=== PATIENT | female | born 1990 | race Two or more races ===

== ENCOUNTER 2018-06-25 20:10 | Observation (INO) | payer OTHER ==
[2018-06-25 21:54] LABS: RUPTURE FETAL MEMBRANES NEGATIVE (NEGATIVE)
[2018-06-25 22:01] LABS: ADD UMIC YES; UR ASCORBIC ACID 40 mg/dL (NEGATIVE); UR BACTERIA FEW /HPF (NONE SEEN); UR BILIRUBIN (Dip) NEGATIVE (NEGATIVE); UR BLOOD (Dip) NEGATIVE (NEGATIVE); UR CLARITY CLEAR (CLEAR); UR COLOR YELLOW (YELLOW); UR GLUCOSE (Dip) NEGATIVE (NEGATIVE); UR KETONES (Dip) NEGATIVE (NEGATIVE); UR LEUKOCYTE ESTERASE (Dip) TRACE Leu/ul (NEGATIVE); UR MUCUS FEW /HPF (NONE SEEN); UR NITRITE (Dip) NEGATIVE (NEGATIVE); UR RBC 1 /HPF (0-5); UR SPECIFIC GRAVITY (Dip) 1.015 (1.003-1.030); UR SQUAMOUS EPITHELIAL CELL FEW /HPF (FEW); UR TOTAL PROTEIN (Dip) NEGATIVE (NEGATIVE); UR UROBILINOGEN (Dip) NEGATIVE (NEGATIVE); UR WBC 3 /HPF (0-5)
[2018-06-26] MEDS ORDERED: LIDOCAINE 1% (MPF) 30 ML INJ INJ (01:00)
[2018-06-26] MEDS ORDERED: AMPICILLIN 2 GM/NS (PMX) 100 ML IV (01:00)
[2018-06-26] MEDS ORDERED: MISOPROSTOL 200 MCG TAB PR (01:00)
[2018-06-26] MEDS ORDERED: METHYLERGONOVINE 0.2 MG INJ IM (01:00)
[2018-06-26] MEDS ORDERED: BUTORPHANOL 1 MG INJ IV (01:00)
[2018-06-26] MEDS ORDERED: BUTORPHANOL 2 MG INJ IV (01:00)
[2018-06-26] MEDS ORDERED: CARBOPROST 250 MCG INJ IM (01:00)
[2018-06-26] MEDS ORDERED: OXYTOCIN 30 UNITS/LR 500 ML IV ×3 (01:00)
[2018-06-26] MEDS ORDERED: IBUPROFEN 600 MG TAB PO (01:00)
[2018-06-26] MEDS: LACTATED RINGER'S 1,000 ML IV* ×2 (04:21→11:59)
[2018-06-26 04:49] LABS: ADD MAN DIFF? NO
[2018-06-26 04:53] LABS: BASOPHILS % 0.2 % (0.0-2.0); EOSINOPHILS % 0.3 % (0.0-7.0); HEMATOCRIT 30.8 % (37.0-47.0); HEMOGLOBIN 10.4 g/dl (12.0-16.0); LYMPHOCYTES # 2.6 10^3/ul (0.8-2.9); LYMPHOCYTES % 22.6 % (15.0-51.0); MEAN CORPUSCULAR HGB CONC 33.8 g/dl (32.0-37.0); MEAN CORPUSCULAR VOLUME 91.9 fl (82.0-101.0); MONOCYTE # 0.6 10^3/ul (0.3-0.9); MONOCYTES % 5.4 % (0.0-11.0); NEUTROPHIL # 8.1 10^3/ul (1.6-7.5); NEUTROPHILS % 70.8 % (39.0-77.0); PLATELET COUNT 215 10^3/UL (140-415); RED BLOOD COUNT 3.35 10^6/ul (4.20-5.40); RED CELL DISTRIBUTION WIDTH 12.8 % (11.5-14.5)
[2018-06-26 04:53] LABS: WHITE BLOOD COUNT 11.5 10^3/ul (4.8-10.8)
[2018-06-26] MEDS ORDERED: AMPICILLIN 1 GM/NS (PMX) 50 ML IV (05:00)
[2018-06-26 05:18] LABS: INR 0.95; PROTIME 12.8 Sec (11.9-14.9)
[2018-06-26 05:19] LABS: PARTIAL THROMBOPLASTIN TIME 25.9 Sec (23.0-35.0)
[2018-06-26 07:10] LABS: HEPATITIS B SURFACE ANTIGEN NEGATIVE (NEGATIVE)
[2018-06-26 15:18] LABS: RUPTURE FETAL MEMBRANES NEGATIVE (NEGATIVE)
[2018-06-26 15:20] LABS: RAPID PLASMA REAGIN NONREACTIVE (NR)
== END 2018-06-26 15:50 | disposition home or self-care (01) ==
LOC: OBT 20:10 → L-D 20:12
PROVIDERS: Obstetrics & Gynecology
DX: O47.1 False labor at or after 37 completed weeks of gestation (principal); Z3A.39 39 weeks gestation of pregnancy
CPT/HCPCS: 76818; 81001; 84112; 85025; 85610; 85730; 86592; 86850; 86900; 86901; 87086; 87340; 99217

== ENCOUNTER 2018-07-01 11:10 | Outpatient (CLI) | payer OTHER | END 2018-07-01 14:13 | disposition home or self-care (01) | LOC: OBT 11:10 → L-D 11:10 → OBT 14:13 | DX: O62.9 Abnormality of forces of labor, unspecified (principal); Z3A.40 40 weeks gestation of pregnancy | CPT/HCPCS: 76815; 76818 ==

== ENCOUNTER 2018-07-01 18:52 | Inpatient (IN) | payer OTHER ==
[2018-07-01] MEDS ORDERED: OXYTOCIN 30 UNITS/LR 500 ML IV (20:00)
[2018-07-01] MEDS ORDERED: CARBOPROST 250 MCG INJ IM (20:00)
[2018-07-01] MEDS ORDERED: MISOPROSTOL 200 MCG TAB PR (20:00)
[2018-07-01] MEDS ORDERED: LIDOCAINE 1% (MPF) 30 ML INJ INJ (20:00)
[2018-07-01] MEDS ORDERED: METHYLERGONOVINE 0.2 MG INJ IM (20:00)
[2018-07-01] MEDS ORDERED: OXYCODONE/ASPIRIN (4.88/325) TAB PO (20:00)
[2018-07-01] MEDS ORDERED: BUTORPHANOL 2 MG INJ IV (20:00)
[2018-07-01 20:08] LABS: ADD MAN DIFF? NO
[2018-07-01 20:12] LABS: WHITE BLOOD COUNT 12.5 10^3/ul (4.8-10.8)
[2018-07-01 20:12] LABS: BASOPHILS % 0.2 % (0.0-2.0); EOSINOPHILS % 0.2 % (0.0-7.0); HEMATOCRIT 30.2 % (37.0-47.0); HEMOGLOBIN 10.3 g/dl (12.0-16.0); LYMPHOCYTES # 2.2 10^3/ul (0.8-2.9); LYMPHOCYTES % 17.2 % (15.0-51.0); MEAN CORPUSCULAR HEMOGLOBIN 31.1 pg (29.0-33.0); MEAN CORPUSCULAR HGB CONC 34.1 g/dl (32.0-37.0); MEAN CORPUSCULAR VOLUME 91.2 fl (82.0-101.0); MEAN PLATELET VOLUME 11.9 fl (7.4-10.4); MONOCYTE # 0.9 10^3/ul (0.3-0.9); MONOCYTES % 6.8 % (0.0-11.0); NEUTROPHIL # 9.4 10^3/ul (1.6-7.5); NEUTROPHILS % 74.9 % (39.0-77.0); PLATELET COUNT 211 10^3/UL (140-415); RED BLOOD COUNT 3.31 10^6/ul (4.20-5.40); RED CELL DISTRIBUTION WIDTH 12.8 % (11.5-14.5)
[2018-07-01] MEDS: LACTATED RINGER'S 1,000 ML IV* (20:33)
[2018-07-01 20:36] LABS: PARTIAL THROMBOPLASTIN TIME 26.6 Sec (23.0-35.0); PROTIME 12.2 Sec (11.9-14.9)
[2018-07-01] MEDS: OXYTOCIN 30 UNITS/LR 500 ML IV (20:45)
[2018-07-01 20:57] LABS: HEPATITIS B SURFACE ANTIGEN NEGATIVE (NEGATIVE)
[2018-07-02] MEDS: LACTATED RINGER'S 1,000 ML IV* ×4 (03:52→19:32)
[2018-07-02 05:00] LABS: ADD UMIC YES; UR ASCORBIC ACID NEGATIVE (NEGATIVE); UR BACTERIA FEW /HPF (NONE SEEN); UR BILIRUBIN (Dip) NEGATIVE (NEGATIVE); UR BLOOD (Dip) 2+ mg/dL (NEGATIVE); UR CLARITY CLEAR (CLEAR); UR COLOR YELLOW (YELLOW); UR GLUCOSE (Dip) NEGATIVE (NEGATIVE); UR KETONES (Dip) NEGATIVE (NEGATIVE); UR LEUKOCYTE ESTERASE (Dip) TRACE Leu/ul (NEGATIVE); UR NITRITE (Dip) NEGATIVE (NEGATIVE); UR RBC 1 /HPF (0-5); UR SPECIFIC GRAVITY (Dip) 1.005 (1.003-1.030); UR TOTAL PROTEIN (Dip) NEGATIVE (NEGATIVE); UR UROBILINOGEN (Dip) NEGATIVE (NEGATIVE); UR WBC 2 /HPF (0-5)
[2018-07-02] MEDS: ONDANSETRON 4 MG INJ IV (09:28)
[2018-07-02] MEDS ORDERED: FAMOTIDINE 20 MG INJ (09:28)
[2018-07-02] MEDS: FAMOTIDINE 20 MG INJ IV (09:41)
[2018-07-02] MEDS: FENTAnyl 2MCG/ML-ROPIV 0.2% 100 ML BAG EPI ×2 (16:34→23:41)
[2018-07-02 22:29] LABS: RAPID PLASMA REAGIN NONREACTIVE (NR)
[2018-07-03] MEDS: LACTATED RINGER'S 1,000 ML IV* ×2 (00:14→05:26)
[2018-07-03] MEDS ORDERED: ONDANSETRON 4 MG INJ (00:37)
[2018-07-03] MEDS ORDERED: LIDOCAINE 0.5% (SDV) 50 ML INJ (00:37)
[2018-07-03] MEDS: ONDANSETRON 4 MG INJ IV (00:54)
[2018-07-03] MEDS ORDERED: ONDANSETRON 4 MG INJ IV (01:00)
[2018-07-03] MEDS ORDERED: MINERAL OIL LIGHT 10 ML VIAL TOP (01:30)
[2018-07-03] MEDS: LIDOCAINE 0.5% (SDV) 50 ML INJ INJ (01:40)
[2018-07-03] MEDS: MINERAL OIL LIGHT 10 ML VIAL TOP ×2 (01:50→01:55)
[2018-07-03] MEDS: LIDOCAINE 0.5% (SDV) 50 ML INJ INFIL (01:55)
[2018-07-03] MEDS: OXYTOCIN 30 UNITS/LR 500 ML IV ×2 (02:07→02:08)
[2018-07-03] MEDS: IBUPROFEN 600 MG TAB PO ×6 (03:22→23:47)
[2018-07-03] MEDS ORDERED: MISOPROSTOL 200 MCG TAB PR (04:30)
[2018-07-03] MEDS ORDERED: DIBUCAINE 1% 30 GM OINT TOP (04:30)
[2018-07-03] MEDS ORDERED: METHYLERGONOVINE 0.2 MG INJ IM (04:30)
[2018-07-03] MEDS ORDERED: ZOLPIDEM 5 MG TAB PO (04:30)
[2018-07-03] MEDS ORDERED: CARBOPROST 250 MCG INJ IM (04:30)
[2018-07-03] MEDS ORDERED: WITCH HAZEL/GLYCERIN PAD PR (04:30)
[2018-07-03] MEDS ORDERED: HYDROCODONE/APAP (5/325) TAB PO ×2 (04:30)
[2018-07-03] MEDS ORDERED: OXYTOCIN 30 UNITS/LR 500 ML IV (04:30)
[2018-07-03] MEDS ORDERED: BENZOCAINE 20% 56 ML SPRAY TOP (04:30)
[2018-07-03] MEDS: CEPHALEXIN 500 MG CAP PO ×4 (05:25→23:47)
[2018-07-03] MEDS: SENNA/DOCUSATE NA (8.6MG/50MG) TAB PO ×2 (09:00→21:02)
[2018-07-03] MEDS: MAGNESIUM HYDROXIDE 30ML CUP PO ×2 (09:00→21:02)
[2018-07-03 13:55] LABS: ADD MAN DIFF? NO
[2018-07-03 13:56] LABS: WHITE BLOOD COUNT 20.3 10^3/ul (4.8-10.8)
[2018-07-03 13:56] LABS: BASOPHILS % 0.2 % (0.0-2.0); EOSINOPHILS % 0.2 % (0.0-7.0); HEMATOCRIT 27.6 % (37.0-47.0); HEMOGLOBIN 9.2 g/dl (12.0-16.0); LYMPHOCYTES # 2.1 10^3/ul (0.8-2.9); LYMPHOCYTES % 10.4 % (15.0-51.0); MEAN CORPUSCULAR HEMOGLOBIN 31.4 pg (29.0-33.0); MEAN CORPUSCULAR HGB CONC 33.3 g/dl (32.0-37.0); MEAN CORPUSCULAR VOLUME 94.2 fl (82.0-101.0); MEAN PLATELET VOLUME 11.8 fl (7.4-10.4); MONOCYTE # 1.1 10^3/ul (0.3-0.9); MONOCYTES % 5.6 % (0.0-11.0); NEUTROPHIL # 16.8 10^3/ul (1.6-7.5); NEUTROPHILS % 82.8 % (39.0-77.0); PLATELET COUNT 175 10^3/UL (140-415); RED BLOOD COUNT 2.93 10^6/ul (4.20-5.40)
[2018-07-04] MEDS: CEPHALEXIN 500 MG CAP PO ×4 (05:24→23:56)
[2018-07-04] MEDS: IBUPROFEN 600 MG TAB PO ×2 (05:25→12:25)
[2018-07-04 07:52] LABS: ADD MAN DIFF? NO
[2018-07-04 08:10] LABS: BASOPHILS % 0.1 % (0.0-2.0); EOSINOPHILS # 0.1 10^3/ul (0.0-0.5); EOSINOPHILS % 0.7 % (0.0-7.0); HEMATOCRIT 25.3 % (37.0-47.0); HEMOGLOBIN 8.3 g/dl (12.0-16.0); LYMPHOCYTES # 2.2 10^3/ul (0.8-2.9); LYMPHOCYTES % 15.1 % (15.0-51.0); MEAN CORPUSCULAR HEMOGLOBIN 30.7 pg (29.0-33.0); MEAN CORPUSCULAR HGB CONC 32.8 g/dl (32.0-37.0); MEAN CORPUSCULAR VOLUME 93.7 fl (82.0-101.0); MEAN PLATELET VOLUME 12.4 fl (7.4-10.4); MONOCYTE # 0.7 10^3/ul (0.3-0.9); MONOCYTES % 5.2 % (0.0-11.0); NEUTROPHIL # 11.1 10^3/ul (1.6-7.5); NEUTROPHILS % 78.3 % (39.0-77.0); PLATELET COUNT 161 10^3/UL (140-415); RED CELL DISTRIBUTION WIDTH 13.1 % (11.5-14.5)
[2018-07-04 08:10] LABS: WHITE BLOOD COUNT 14.2 10^3/ul (4.8-10.8)
[2018-07-04] MEDS: SENNA/DOCUSATE NA (8.6MG/50MG) TAB PO ×2 (09:00→21:00)
[2018-07-04] MEDS: MAGNESIUM HYDROXIDE 30ML CUP PO ×2 (09:00→21:00)
[2018-07-05] MEDS: IBUPROFEN 200 MG TAB PO ×2 (00:19→05:39)
[2018-07-05] MEDS: CEPHALEXIN 500 MG CAP PO ×2 (05:38→11:24)
[2018-07-05 08:19] LABS: ADD MAN DIFF? NO
[2018-07-05 08:21] LABS: WHITE BLOOD COUNT 13.3 10^3/ul (4.8-10.8)
[2018-07-05 08:21] LABS: BASOPHILS % 0.2 % (0.0-2.0); EOSINOPHILS # 0.2 10^3/ul (0.0-0.5); EOSINOPHILS % 1.5 % (0.0-7.0); HEMATOCRIT 29.2 % (37.0-47.0); HEMOGLOBIN 9.5 g/dl (12.0-16.0); LYMPHOCYTES # 2.2 10^3/ul (0.8-2.9); LYMPHOCYTES % 16.5 % (15.0-51.0); MEAN CORPUSCULAR HEMOGLOBIN 30.6 pg (29.0-33.0); MEAN CORPUSCULAR HGB CONC 32.5 g/dl (32.0-37.0); MEAN CORPUSCULAR VOLUME 94.2 fl (82.0-101.0); MONOCYTE # 0.7 10^3/ul (0.3-0.9); NEUTROPHIL # 10.1 10^3/ul (1.6-7.5); PLATELET COUNT 210 10^3/UL (140-415); RED CELL DISTRIBUTION WIDTH 12.9 % (11.5-14.5)
[2018-07-05] MEDS: MEASLES,MUMPS,RUBELLA VACCINE INJ SC* (09:00)
[2018-07-05] MEDS: VARICELLA VACCINE LIVE/PF 1,350 UNIT/0.5 ML ML SC* (09:00)
[2018-07-05] MEDS: DIPHTH/TET/ACEL PERTUSS (ADULT) 0.5 ML VIAL IM* (09:00)
[2018-07-05] MEDS: MAGNESIUM HYDROXIDE 30ML CUP PO (09:00)
[2018-07-05] MEDS: SENNA/DOCUSATE NA (8.6MG/50MG) TAB PO (10:18)
[2018-07-05] MEDS: IBUPROFEN 600 MG TAB PO (11:24)
[2018-07-05] MEDS: LANOLIN 7 GM TUBE TOP (11:25)
== END 2018-07-05 15:00 | disposition home or self-care (01) | DRG 807 ==
LOC: PP1 07-03 04:04 → OBT 18:52 → L-D 18:53 → OBT 18:53 → L-D 19:05
PROVIDERS: Obstetrics & Gynecology
PROC: 10E0XZZ Delivery of Products of Conception, External Approach (ICD-10-PCS; principal; 2018-07-03)
PROC: 0W8NXZZ Division of Female Perineum, External Approach (ICD-10-PCS; 2018-07-03)
PROC: 0UQKXZZ Repair Hymen, External Approach (ICD-10-PCS; 2018-07-03)
DX: O48.0 Post-term pregnancy (principal); Z37.0 Single live birth; O70.0 First degree perineal laceration during delivery; Z3A.40 40 weeks gestation of pregnancy; O69.81X0 Labor and delivery complicated by cord around neck, without compression, not applicable or unspecified
CPT/HCPCS: 62319; 81001; 85025; 85610; 85730; 86592; 86850; 86900; 86901; 87086; 87340; 90715; 90716; 99464

== ENCOUNTER 2018-09-18 16:54 | Emergency (ER) | payer OTHER ==
[2018-09-18] MEDS: SOD CHLORIDE 0.9% 1,000 ML IV (18:39)
[2018-09-18] MEDS: ACETAMINOPHEN 500 MG TAB PO (18:40)
[2018-09-18 18:51] LABS: ADD MAN DIFF? NO
[2018-09-18 18:53] LABS: WHITE BLOOD COUNT 8.1 10^3/ul (4.8-10.8)
[2018-09-18 18:53] LABS: ABNORMAL IP MESSAGE 1; BASOPHILS % 0.1 % (0.0-2.0); EOSINOPHILS % 0.1 % (0.0-7.0); HEMATOCRIT 37.7 % (37.0-47.0); HEMOGLOBIN 12.4 g/dl (12.0-16.0); LYMPHOCYTES # 0.6 10^3/ul (0.8-2.9); LYMPHOCYTES % 7.3 % (15.0-51.0); MEAN CORPUSCULAR HEMOGLOBIN 29.7 pg (29.0-33.0); MEAN CORPUSCULAR HGB CONC 32.9 g/dl (32.0-37.0); MEAN CORPUSCULAR VOLUME 90.2 fl (82.0-101.0); MONOCYTE # 0.4 10^3/ul (0.3-0.9); MONOCYTES % 4.9 % (0.0-11.0); NEUTROPHIL # 7.1 10^3/ul (1.6-7.5); NEUTROPHILS % 87.2 % (39.0-77.0); PLATELET COUNT 204 10^3/UL (140-415); RED BLOOD COUNT 4.18 10^6/ul (4.20-5.40); RED CELL DISTRIBUTION WIDTH 11.8 % (11.5-14.5)
[2018-09-18 18:54] LABS: POSITIVE DIFF @See below
[2018-09-18 19:19] LABS: ADD UMIC YES; UR ASCORBIC ACID NEGATIVE (NEGATIVE); UR BILIRUBIN (Dip) NEGATIVE (NEGATIVE); UR BLOOD (Dip) 1+ mg/dL (NEGATIVE); UR CLARITY SLIGHTLY CLOUDY (CLEAR); UR COLOR YELLOW (YELLOW); UR GLUCOSE (Dip) NEGATIVE (NEGATIVE); UR KETONES (Dip) NEGATIVE (NEGATIVE); UR LEUKOCYTE ESTERASE (Dip) 3+ Leu/ul (NEGATIVE); UR MUCUS FEW /HPF (NONE SEEN); UR NITRITE (Dip) NEGATIVE (NEGATIVE); UR RBC 5 /HPF (0-5); UR SPECIFIC GRAVITY (Dip) 1.008 (1.003-1.030); UR SQUAMOUS EPITHELIAL CELL FEW /HPF (FEW); UR TOTAL PROTEIN (Dip) NEGATIVE (NEGATIVE); UR UROBILINOGEN (Dip) NEGATIVE (NEGATIVE); UR WBC 80 /HPF (0-5)
[2018-09-18 19:23] LABS: ALANINE AMINOTRANSFERASE 70 IU/L (13-69); ALBUMIN 4.5 g/dl (3.3-4.9); ALBUMIN/GLOBULIN RATIO 1.66; ALKALINE PHOSPHATASE 53 IU/L (42-121); ANION GAP 11 (5-13); ASPARTATE AMINO TRANSFERASE 43 IU/L (15-46); BILIRUBIN,INDIRECT 1.5 mg/dl (0-1.1); BILIRUBIN,TOTAL 1.5 mg/dl (0.2-1.3); BLOOD UREA NITROGEN 8 mg/dl (7-20); CALCIUM 9.7 mg/dl (8.4-10.2); CARBON DIOXIDE 26 mmol/L (21-31); CHLORIDE 101 mmol/L (97-110); CREATININE 0.62 mg/dl (0.44-1.00); Estimated GFR > 60 mL/min (>60); GLUCOSE 103 mg/dl (70-220); LIPASE 55 U/L (23-300); POTASSIUM 3.7 mmol/L (3.5-5.1); SODIUM 138 mmol/L (135-144); TOTAL PROTEIN 7.2 g/dl (6.1-8.1)
== END 2018-09-18 20:05 | disposition home or self-care (01) ==
LOC: FTE 16:54
DX: N30.90 Cystitis, unspecified without hematuria (principal)
CPT/HCPCS: 36415; 80053; 81001; 81025; 83690; 85025; 99284-25